=== PATIENT | male | born 1990 | race Caucasian/White ===

== ENCOUNTER 2024-01-15 21:58 | Emergency (ER) | payer MEDICAID ==
[~2024-01-15] VITALS: Ht 182.9 cm; Wt 170.0 kg
[2024-01-15 22:09] VITALS: O2SAT 98
[2024-01-16 00:20] VITALS: TEMP 98.4
[2024-01-16 00:51] LABS: BASOPHILS % 0.5 % (0.0-2.0); EOSINOPHILS % 1.2 % (0.0-5.0); HEMATOCRIT. 46.6 % (42.0-52.0); HEMOGLOBIN. 15.9 g/dL (14.0-18.0); LYMPHOCYTES % 17.6 % (20.0-50.0); MEAN CORPUSCULAR HEMOGLOBIN 28.8 pg (28.0-32.0); MEAN CORPUSCULAR HGB CONC 34.1 g/dL (31.0-37.0); MEAN CORPUSCULAR VOLUME 84.6 fL (80.0-94.0); MEAN PLATELET VOLUME 8.4 fl (7.4-10.4); MONOCYTES % 9.9 % (2.0-8.0); NEUTROPHILS % 70.8 % (40.0-76.0); PLATELET 320 x1000/uL (130-400); RED BLOOD CELL COUNT 5.51 mill/uL (4.7-6.1); RED CELL DISTRIBUTION WIDTH 13.8 % (11.6-14.6); WHITE BLOOD COUNT 14.8 x1000/uL (4.5-11.0)
[2024-01-16 00:56] LABS: CARBON DIOXIDE 24 mEq/L (21-32); CHLORIDE 106 mEq/L (98-107); POTASSIUM 3.9 mEq/L (3.5-5.1); SODIUM 137 mEq/L (136-145)
[2024-01-16 00:57] LABS: CALCIUM 9.1 mg/dL (8.7-10.4)
[2024-01-16 01:01] LABS: CREATININE 0.9 mg/dL (0.6-1.3)
[2024-01-16 01:02] LABS: GLUCOSE 120 mg/dL (70-105); UREA NITROGEN BLOOD 10 mg/dL (9-23)
[2024-01-16] MEDS: KETOROLAC 15MG/ML VIAL IV ONE (01:33)
[2024-01-16] MEDS: METOCLOPRAMIDE HCL 10MG/2ML VIAL IV ONE (01:36)
[2024-01-16] MEDS: SODIUM CHLORIDE 0.9% 1,000 ML IV ONE (01:39)
[2024-01-16] MEDS: DEXAMETHASONE 10 MG/ML VIAL IV ONE (01:40)
[2024-01-16] MEDS: DIPHENHYDRAMINE 50MG/ML VIAL IV ONE (01:44)
[2024-01-16] MEDS: MAGNESIUM 2 G PREMIX 50 ML IV ONE (01:52)
[2024-01-16] MEDS ORDERED: NAPR-1074 MT (01:54)
[2024-01-16] MEDS ORDERED: METO-293 MT (01:54)
[2024-01-16 03:25] VITALS: BP 144/71; PULSE 69; RESP 19
== END 2024-01-16 03:34 | disposition home or self-care (01) ==
LOC: ER 21:58
DX: G43.909 Migraine, unspecified, not intractable, without status migrainosus (principal); Z00.00 Encounter for general adult medical examination without abnormal findings; Z68.43 Body mass index [BMI] 50.0-59.9, adult
CPT/HCPCS: 99285; 96365; 96375; 80048; 83735; 85025; 36415; J1100; J1200; J1885; J3475; J2765; J7030

== ENCOUNTER 2024-01-16 13:27 | Emergency (ER) | payer MEDICAID ==
[~2024-01-16] VITALS: Ht 188 cm; Wt 175.0 kg
[~2024-01-16 13:27] MED LIST: METO-293 MT; NAPR-1074 MT
[2024-01-16 13:28] VITALS: O2SAT 96
[2024-01-16 15:22] LABS: HEMATOCRIT. 46.1 % (42.0-52.0); HEMOGLOBIN. 15.9 g/dL (14.0-18.0); MEAN CORPUSCULAR HGB CONC 34.5 g/dL (31.0-37.0); MEAN PLATELET VOLUME 8.6 fl (7.4-10.4); PLATELET 365 x1000/uL (130-400); RED BLOOD CELL COUNT 5.49 mill/uL (4.7-6.1); RED CELL DISTRIBUTION WIDTH 14.1 % (11.6-14.6); WHITE BLOOD COUNT 17.5 x1000/uL (4.5-11.0)
[2024-01-16 15:23] LABS: DIFFERENTIAL COMMENT 1
[2024-01-16 15:30] LABS: CHLORIDE 108 mEq/L (98-107); POTASSIUM 4.6 mEq/L (3.5-5.1); SODIUM 136 mEq/L (136-145)
[2024-01-16 15:31] LABS: CALCIUM 9.5 mg/dL (8.7-10.4); CARBON DIOXIDE 20 mEq/L (21-32)
[2024-01-16 15:36] LABS: CREATININE 0.8 mg/dL (0.6-1.3); GLUCOSE 163 mg/dL (70-105); UREA NITROGEN BLOOD 13 mg/dL (9-23)
[2024-01-16 15:37] LABS: TROPONIN I HIGH SENSITIVITY 14 ng/L (3.0-53)
[2024-01-16 16:33] LABS: PLATELET ESTIMATE NORMAL
[2024-01-16] MEDS: SODIUM CHLORIDE 0.9% 1,000 ML IV ONE (16:48)
[2024-01-16] MEDS: KETOROLAC 30MG/ML VIAL IV ONE (16:48)
[2024-01-16 16:49] LABS: TROPONIN I HIGH SENSITIVITY 13 ng/L (3.0-53)
[2024-01-16 18:20] VITALS: BP 134/68; PULSE 69; RESP 15; TEMP 98.4
== END 2024-01-16 18:20 | disposition home or self-care (01) ==
LOC: ER 13:27
DX: R42 Dizziness and giddiness (principal); H53.8 Other visual disturbances; Z91.041 Radiographic dye allergy status; Z86.59 Personal history of other mental and behavioral disorders; Z98.890 Other specified postprocedural states
CPT/HCPCS: 99285; 96374; 71045; 80048; 83880; 83605; 85025; 84484; 36415; 93005; J1885; J7030